=== PATIENT | male | born 1960 | race Caucasian/White ===

== ENCOUNTER 2019-01-26 21:51 | Inpatient (IN) ==
[2019-01-26] MEDS ORDERED: 0.9 % Sodium Chloride 1,000 ML IVC ONE (22:16)
[2019-01-26] MEDS ORDERED: Ondansetron 4 MG/2 ML VIAL IVP ONE (22:20)
[2019-01-26] MEDS ORDERED: Isovue-370 500 ML BOTTLE IVP ONE (22:41)
[2019-01-26 22:52] LABS: Basophils % 0.2 %; Eosinophils # 0.1 K/mcL (0.0-0.6); Eosinophils % 1.3 %; Hematocrit 43.7 % (37.5-50.1); Hemoglobin 14.4 g/dL (12.9-16.9); Immature Granulocytes % 0.4 % (0-4); Lymphocytes # 1.2 K/mcL (0.6-4.6); Mean Corpuscular Hemoglobin 26.5 pg (28.0-33.3); Mean Corpuscular Volume 80.3 fL (83.0-100.0); Monocytes # 0.9 K/mcL (0.0-1.3); Monocytes % 9.3 %; Neutrophils # 6.9 K/mcL (1.6-8.9); Platelet Count 276 K/mcL (140-400); Red Blood Count 5.44 M/mcL (4.19-5.50); Red Cell Distribution Width 15.8 % (11.5-14.5); Segmented Neutrophils % 75.8 %
--- NOTE | 2019-01-26 23:01 | Emergency Department Note ---
Disposition Clinical Impression: SBO (small bowel obstruction), Abdominal pain Disposition: Admitted As Inpatient Referrals: Dodie Lazaro CNP [Primary Care Provider] - Forms: ED Satisfaction Letter, Work/School Release Time of Disposition: 23:48 Abdominal Pain HPI - General Chief Complaint: ED Abdominal Pain Stated Complaint: Bowel Blockage Time Seen by Provider: 01/26/19 22:07 Source: family Mode of arrival: ambulatory Limitations: no limitations Nursing Notes Reviewed: Yes Vital Signs Reviewed: Yes - History of Present Illness HPI Narrative: 58 showed male presents emergency room for abdominal pain. Was just recently discharged 2 days ago after he was admitted for a small bowel obstruction. Patient had a CT scan done which showed the bowel obstruction with a transition point in the right lower quadrant. Patient had NG tube was admitted to the hospital. He did improve. They advanced his diet after NG tube removal when he went home on Tuesday. States ever since then he has been having return of his abdominal pain as well as associated nausea. He admits to a lot of belching and pressure in the upper abdomen. He denies any actual vomiting. He also admits he has passed a little bit of gas at times. No fevers. Pain is somewhat diffuse throughout the abdomen. No other complaints. Pain Scale: 8 - Related Data Home Medications Medication Instructions Recorded Confirmed Cetirizine HCl [24Hour Allergy] 10 mg PO DAILY 01/22/19 01/22/19 Mesalamine [Pentasa] 1,000 mg PO QID 01/22/19 01/22/19 hydroCHLOROthiazide 25 mg PO DAILY 01/22/19 01/22/19 [Hydrochlorothiazide] Allergies Allergy/AdvReac Type Severity Reaction Status Date / Time No Known Allergies Allergy Verified 08/19/17 10:37 Review of Systems: Gen.: No fevers or chills or new weakness Eyes: Denies double vision or any vision changes Ears: Denies any otalgia Pharynx: Denies sore throat CV: Denies chest pain. Denies palpitations Respiratory: Denies any cough or sputum production. No shortness of breath. GI: Positive for abdominal pain, nausea Neuro: Denies any headache. No problems with ambulation. No numbness. Skin: Denies any rashes or abrasions Psych: Denies any depression or suicidal or homicidal ideation Musculoskeletal: Denies any arthralgias or myalgias Abdominal Pain PMH - Past Medical History Medical history: Reports: other Male Surgical History: Reports: other Psychiatric history: Reports: no psych history - Social History Smoking status: Former smoker Alcohol use: Reports: occasionally Drug use: Reports: none Physical Exam - General Limitations: no limitations General appearance: alert - Head Head exam: atraumatic, normocephalic - Eye Eye exam: Present: normal appearance - Chest Chest inspection: Present: normal inspection, symmetric chest wall rise - Respiratory Respiratory exam: Present: normal lung sounds bilaterally. Absent: respiratory distress - Cardiovascular Cardiovascular exam: Present: regular rate, normal rhythm - Abdominal Exam Abdominal exam: Present: soft, tenderness, other (Patient has some high-pitched bowel sounds.). Absent: organomegaly - Expanded Lower Extremity Exam Hip/Pelvis exam: Present: normal inspection - Neurological Exam Neurological exam: Present: alert, oriented X3 - Psychiatric Psychiatric exam: Present: normal affect - Skin Skin exam: Present: warm, dry, intact Course - Reevaluation(s) Reevaluation #1: I did speak with Dr. Ragsdale with general surgery. He would like me to repeat the CT scan. Vital Signs Temperature 98.0 F 01/26/19 22:00 Pulse Rate 81 01/26/19 22:00 Respiratory Rate 18 01/26/19 22:00 Blood Pressure 132/79 01/26/19 22:00 O2 Sat by Pulse Oximetry 94 01/26/19 22:00 Temperature 98.0 F 01/26/19 22:20 Pulse Rate 67 01/26/19 23:31 Respiratory Rate 18 01/26/19 23:31 Blood Pressure 153/92 01/26/19 23:31 O2 Sat by Pulse Oximetry 99 01/26/19 23:31 Oxygen Delivery Oxygen Delivery Room Air Abdominal Pain - MDM Narrative Medical decision making narrative: Abdominal series was done acutely. Patient has diffuse air-fluid levels. - Medical Records Medical records reviewed: Yes I reviewed the patient's medical records. - Lab Data Lab results reviewed: Yes I reviewed the patient's lab results. Result diagrams: 01/26/19 22:16 01/26/19 22:16 Lab Results 01/26/19 01/26/19 Range/Units 22:16 22:16 WBC 9.2 (4.3-11.1) K/mcL RBC 5.44 (4.19-5.50) M/mcL Hgb 14.4 (12.9-16.9) g/dL Hct 43.7 (37.5-50.1) % MCV 80.3 L (83.0-100.0) fL MCH 26.5 L (28.0-33.3) pg MCHC 33.0 (31.6-35.5) g/dL RDW 15.8 H (11.5-14.5) % Plt Count 276 (140-400) K/mcL MPV 9.0 L (9.4-12.4) fL Immature Gran % 0.4 (0-4) % Seg Neutrophils % 75.8 % Lymphocytes % 13.0 % Monocytes % 9.3 % Eosinophils % 1.3 % Basophils % 0.2 % Neutrophils # 6.9 (1.6-8.9) K/mcL Lymphocytes # 1.2 (0.6-4.6) K/mcL Monocytes # 0.9 (0.0-1.3) K/mcL Eosinophils # 0.1 (0.0-0.6) K/mcL Basophils # 0.0 (0.0-0.2) K/mcL Sodium 139 (136-145) mEq/L Potassium 3.6 (3.5-5.1) mEq/L Chloride 105 (98-107) mEq/L Carbon Dioxide 26 (23-29) mEq/L BUN 16 (6-20) mg/dL Creatinine 0.99 (0.70-1.30) mg/dL Est GFR ( Amer) > 60 (> 60) Est GFR (Non-Af Amer) > 60 (> 60) BUN/Creatinine Ratio 16 (6-26) Glucose 123 H (70-105) mg/dL Calculated Osmolality 291 (280-300) Calcium 9.4 (8.6-10.3) mg/dL - Radiology Data Radiology results reviewed: Yes I reviewed the patient's radiology results.
[2019-01-26 23:10] LABS: BUN/Creatinine Ratio 16 (6-26); Blood Urea Nitrogen 16 mg/dL (6-20); Calcium 9.4 mg/dL (8.6-10.3); Carbon Dioxide 26 mEq/L (23-29); Chloride 105 mEq/L (98-107); Glucose 123 mg/dL (70-105); Osmolality,Calculated 291 (280-300); Potassium 3.6 mEq/L (3.5-5.1); Sodium 139 mEq/L (136-145); eGFR For Non-African Americans > 60 (> 60)
[2019-01-26] MEDS ORDERED: *HR* Morphine 2 MG/ML SYRINGE IVP ONE (23:37)
[2019-01-26] MEDS ORDERED: 0.9 % Sodium Chloride 1,000 ML IVC SCH (23:45)
[2019-01-26] MEDS ORDERED: Famotidine 20 MG/2 ML VIAL IVP ONE (23:46)
[2019-01-26] MEDS ORDERED: Ondansetron 4 MG/2 ML VIAL IVP PRN (23:47)
[2019-01-26] MEDS ORDERED: MORPHINE SUL Oral CONC 10 MG/0.5 ML ORAL.SYG SL PRN (23:47)
[2019-01-26 23:58] LABS: Alanine Aminotransferase 17 Units/L (7-52); Albumin 4.1 g/dL (3.5-5.7); Albumin/Globulin Ratio 1.3 (1.1-2.2); Alkaline Phosphatase 66 Units/L (34-104); Aspartate Amino Transferase 18 Units/L (13-39); Bilirubin,Direct 0.3 mg/dL (0.0-0.2); Bilirubin,Indirect 1.4 mg/dL (0.0-1.2); Bilirubin,Total 1.7 mg/dL (0.3-1.0); Globulin 3.2 g/dL (2.4-3.5); Lipase 15 Units/L (11-82); Total Protein 7.3 g/dL (6.4-8.9)
[2019-01-27] MEDS ORDERED: *HR* Dextrose 50 % in Water (Syg) 50 ML SYRINGE IVP PRN (01:24)
[2019-01-27] MEDS ORDERED: Dextrose Gel 15 GM/37.5 ML TUBE PO PRN ×2 (01:24)
[2019-01-27] MEDS ORDERED: D5% in Water 1,000 ML IVC PRN (01:24)
[2019-01-27] MEDS: 0.9 % Sodium Chloride 1,000 ML IVC SCH ×3 (01:29→17:42)
[2019-01-27] MEDS: Pantoprazole 40 MG VIAL IVP SCH (05:22)
[2019-01-27] MEDS ORDERED: Chloraseptic Spray 177 ML BOTTLE MM PRN (08:01)
[2019-01-27] MEDS: Acetaminophen IV 1,000 MG/100 ML INFUS..BTL IVPB SCH ×3 (09:08→17:44)
--- NOTE | 2019-01-27 12:17 | Acute Care Surgery H&P ---
<Venessa Kerr N - Last Filed: 01/27/19 12:15> Date of Encounter: 01/27/19 Time of Encounter: 10:00 Assessment and Plan (1) Small bowel obstruction Current Visit: Yes Status: Acute -58-year-old male with history of LAP-BAND surgery in 2006 returns for his second encounter of right lower quadrant small bowel obstruction -Patient was recently discharged after treatment for small bowel obstruction with NG tube decompression -Patient reports initial improvement after decompression but on day of discharge he had progressively worsening nausea, abdominal pain, and decreased appetite -CT imaging on admission is significant for distal small bowel obstruction -Suspect that the small bowel structure may be secondary to his history of LAP- BAND procedure -Will plan for diagnostic laparoscopy with lysis of adhesions tomorrow -Continue NPO and IV fluids -Continue current pain management History of Present Illness Chief complaint: abdominal pain HPI: Mr. Conti is a 58 year old male with a past surgical history of a lap band surgery in 2006 who was recently admitted with a small bowel obstruction and treated with NG tube decompression. Patient states that since day of discharge he had progressively worsening nausea, decreased appetite, and significant abdominal pain and tenderness. Patient returned the emergency department where a repeat CT scan was performed with findings concerning for a redemonstration of a distal small bowel obstruction. An NG tube was placed and is draining bilious material. This morning the patient is resting comfortably in bed, he still has some abdominal pain with tenderness to palpation of the abdomen. Past Med Surg Social Fam HX - Past Medical History Medical history: other Additional medical history: Ulcerative Colitis, lap band, corneal transplant, SBO Psychiatric history: no psych history - Past Surgical History Additional surgical history: lap band surgery, colonoscopies x3 - Social History Smoking Status: Former smoker Smokeless Tobacco Status: No Alcohol use: occasionally Drug use: none - Family History Mother Living Status: Age at : 73 Cause of : CHF Hx Family Cardiac Disorders: Yes Father Living Status: Still Living Hx Family Cardiac Disorders: Yes (HTN) Hx Family Endocrine Disorder: Yes (DM) Medications and Allergies Cetirizine HCl [24Hour Allergy] 10 mg PO DAILY PRN 01/22/19 [History] Mesalamine [Pentasa] 1,000 mg PO QID 01/22/19 [History] hydroCHLOROthiazide [Hydrochlorothiazide] 25 mg PO DAILY 01/22/19 [History] Fluticasone Propionate Nasal [Flonase] 2 spray NS DAILY PRN 01/27/19 [History] Sodium Chloride for inhalation [Sodium Chloride, Saline 15 Ml 15 Ml] 2 - 3 ml IH DAILY PRN 01/27/19 [History] Allergy/AdvReac Type Severity Reaction Status Date / Time No Known Allergies Allergy Verified 01/27/19 12:37 Review of Systems All systems PM: The remainder of the systems were reviewed and are negative - Constitutional no chills, no fever(s) - Cardiovascular no chest pain - Respiratory no dyspnea - Gastrointestinal abdominal pain, nausea, no diarrhea, no vomiting - Genitourinary no dysuria General Surgery Exam Initial Vital Signs Temp Pulse Resp BP Pulse Ox 98.0 F 81 18 132/79 94 01/26/19 22:00 01/26/19 22:00 01/26/19 22:00 01/26/19 22:00 01/26/19 22:00 - General physical appearance well developed, well nourished - Eyes PERRL, normal ocular movement - ENT normal pinna, normal nares - Neck trachea midline, no venous distension - Respiratory normal expansion, normal respiratory effort - Cardiovascular Cardiovascular exam: Present: RRR - Abdomen Abdomen general surgery: Present: bowel sounds present, soft, tender (Worse in the lower quadrants) - Integumentary Integumentary general surgery: Present: warm and dry - Musculoskeletal Present: normal posture - Psychiatric Psychiatric general surgery: Present: A&Ox3 Results - Labs 01/26/19 22:16 01/26/19 22:16 Abnormal lab results MCV 80.3 fL (83.0-100.0) L 01/26/19 22:16 MCH 26.5 pg (28.0-33.3) L 01/26/19 22:16 RDW 15.8 % (11.5-14.5) H 01/26/19 22:16 MPV 9.0 fL (9.4-12.4) L 01/26/19 22:16 Glucose 123 mg/dL (70-105) H 01/26/19 22:16 1.7 mg/dL (0.3-1.0) H 01/26/19 22:16 0.3 mg/dL (0.0-0.2) H 01/26/19 22:16 1.4 mg/dL (0.0-1.2) H 01/26/19 22:16 Diabetes panel 01/26/19 Range/Units 22:16 Sodium 139 (136-145) mEq/L Potassium 3.6 (3.5-5.1) mEq/L Chloride 105 (98-107) mEq/L Carbon Dioxide 26 (23-29) mEq/L BUN 16 (6-20) mg/dL Creatinine 0.99 (0.70-1.30) mg/dL Glucose 123 H (70-105) mg/dL Calcium 9.4 (8.6-10.3) mg/dL AST 18 (13-39) Units/L ALT 17 (7-52) Units/L Alkaline Phosphatase 66 (34-104) Units/L Albumin 4.1 (3.5-5.7) g/dL Calcium panel 01/26/19 Range/Units 22:16 Calcium 9.4 (8.6-10.3) mg/dL Albumin 4.1 (3.5-5.7) g/dL Pituitary panel 01/26/19 Range/Units 22:16 Sodium 139 (136-145) mEq/L Potassium 3.6 (3.5-5.1) mEq/L Chloride 105 (98-107) mEq/L Carbon Dioxide 26 (23-29) mEq/L BUN 16 (6-20) mg/dL Creatinine 0.99 (0.70-1.30) mg/dL Glucose 123 H (70-105) mg/dL Calcium 9.4 (8.6-10.3) mg/dL Adrenal panel 01/26/19 Range/Units 22:16 Sodium 139 (136-145) mEq/L Potassium 3.6 (3.5-5.1) mEq/L Chloride 105 (98-107) mEq/L Carbon Dioxide 26 (23-29) mEq/L BUN 16 (6-20) mg/dL Creatinine 0.99 (0.70-1.30) mg/dL Glucose 123 H (70-105) mg/dL Calcium 9.4 (8.6-10.3) mg/dL Total Bilirubin 1.7 H (0.3-1.0) mg/dL AST 18 (13-39) Units/L ALT 17 (7-52) Units/L Alkaline Phosphatase 66 (34-104) Units/L Albumin 4.1 (3.5-5.7) g/dL All other labs normal. <Viral Ragsdale M - Last Filed: 01/27/19 15:18> Date of Encounter: 01/27/19 History of Present Illness HPI: Mr. Conti is a 58 year old male Review of Systems All systems PM: The remainder of the systems were reviewed and are negative General Surgery Exam Initial Vital Signs Temp Pulse Resp BP Pulse Ox 98.0 F 81 18 132/79 94 01/26/19 22:00 01/26/19 22:00 01/26/19 22:00 01/26/19 22:00 01/26/19 22:00 Results - Labs 01/26/19 22:16 01/26/19 22:16 Abnormal lab results MCV 80.3 fL (83.0-100.0) L 01/26/19 22:16 MCH 26.5 pg (28.0-33.3) L 01/26/19 22:16 RDW 15.8 % (11.5-14.5) H 01/26/19 22:16 MPV 9.0 fL (9.4-12.4) L 01/26/19 22:16 Glucose 123 mg/dL (70-105) H 01/26/19 22:16 1.7 mg/dL (0.3-1.0) H 01/26/19 22:16 0.3 mg/dL (0.0-0.2) H 01/26/19 22:16 1.4 mg/dL (0.0-1.2) H 01/26/19 22:16 Diabetes panel 01/26/19 Range/Units 22:16 Sodium 139 (136-145) mEq/L Potassium 3.6 (3.5-5.1) mEq/L Chloride 105 (98-107) mEq/L Carbon Dioxide 26 (23-29) mEq/L BUN 16 (6-20) mg/dL Creatinine 0.99 (0.70-1.30) mg/dL Glucose 123 H (70-105) mg/dL Calcium 9.4 (8.6-10.3) mg/dL AST 18 (13-39) Units/L ALT 17 (7-52) Units/L Alkaline Phosphatase 66 (34-104) Units/L Albumin 4.1 (3.5-5.7) g/dL Calcium panel 01/26/19 Range/Units 22:16 Calcium 9.4 (8.6-10.3) mg/dL Albumin 4.1 (3.5-5.7) g/dL Pituitary panel 01/26/19 Range/Units 22:16 Sodium 139 (136-145) mEq/L Potassium 3.6 (3.5-5.1) mEq/L Chloride 105 (98-107) mEq/L Carbon Dioxide 26 (23-29) mEq/L BUN 16 (6-20) mg/dL Creatinine 0.99 (0.70-1.30) mg/dL Glucose 123 H (70-105) mg/dL Calcium 9.4 (8.6-10.3) mg/dL Adrenal panel 01/26/19 Range/Units 22:16 Sodium 139 (136-145) mEq/L Potassium 3.6 (3.5-5.1) mEq/L Chloride 105 (98-107) mEq/L Carbon Dioxide 26 (23-29) mEq/L BUN 16 (6-20) mg/dL Creatinine 0.99 (0.70-1.30) mg/dL Glucose 123 H (70-105) mg/dL Calcium 9.4 (8.6-10.3) mg/dL Total Bilirubin 1.7 H (0.3-1.0) mg/dL AST 18 (13-39) Units/L ALT 17 (7-52) Units/L Alkaline Phosphatase 66 (34-104) Units/L Albumin 4.1 (3.5-5.7) g/dL All other labs normal. - Attending Attestation I examined this patient and my medical decision-making was reviewed with the Resident Physician. I agree with the documented findings, disposition and treatment plan as described except to the extent set forth below. I reviewed the above assessment and evaluation with the resident and agree with the above plan. Patient had a previous admission last week secondary to similar symptoms of nausea vomiting abdominal pain. CT scan showed evidence of a partial small bowel obstruction. He was treated conservatively with an NG tube which did not resolve his symptoms. He states that he has been home for a co uple days and been having a fairly liquid diet and started to have increasing abdominal pain. Because of his increasing pain re-presented to the [facility]. Repeat CT scan once again shows evidence of bowel obstruction with decompression noted in the right lower quadrant. Also on imaging it appears to be near the area of his tubing for his laparoscopic band procedure. NG tube has helped his symptoms and he is less tenderness to palpation at this time. I explained to the patient that I am concerned that he has adhesions around the tubing that is causing the problems with his partial obstruction and I think it would be appropriate to proceed with a robot laparoscopic valuation and lysis of adhesion. Risk and benefits discussed with the patient he agrees to the above plan. We will plan for this tomorrow.
--- NOTE | 2019-01-27 16:26 | Event Note ---
Date of Encounter: 01/27/19 Time of Encounter: 16:25 Contacted by nurse who states the patient family member and patient wished to have a surgical considerations and procedure performed by Dr. Mcclelland (patient's family members are familiar with Dr. Mcclelland). Dr. Mcclelland has been contacted and has seen the patient and agrees with transfer acceptance.
--- NOTE | 2019-01-27 16:40 | General Surgery Consult Note ---
Date of Encounter: 01/27/19 Time of Encounter: 16:00 History of Present Illness Consult date: 01/27/19 Requesting physician: Viral Ragsdale History of present illness: 58-year-old readmitted to [facility] last evening with recurrent abdominal distention, pain, nausea and vomiting consistent with persistent/recurrent small bowel obstruction. The patient was initially admitted 01/22/19 with diffuse cramping abdominal pain nausea and vomiting. Radiographs were consistent with small bowel obstruction. The patient was ad mitted and medically managed with apparent resolution of his symptoms. The patient was discharged home only to have recurrent symptoms requiring his readmission last evening. Based on repeat imaging lab work and physical examination surgery has been recommended. The patient and his family have re quested that I contacted for this potential surgical intervention. I agree with the treatments rendered to date. Medical management has obviously failed to resolve the patient's acute symptoms and surgery is warranted. Past medical history: Hypertension; ulcerative colitis Surgeries: Lap band surgery in 2006; colonoscopy 3 Allergies: No known drug allergies Medications: Cetirizine 10 mg by mouth daily Mesalamine 1000 mg by mouth 4 times a day Hydrochlorothiazide 25 mg by mouth daily Social history: Patient is , lives with spouse; he is a former smoker. He quit smoking in 2004 but admits to 2 packs daily for approximately 20 years. The patient admits to an occasional alcoholic beverage she does not consume illicit drugs. Family history: Notable for CHF and diabetes mellitus On physical examination: Age-appropriate male resting comfortably in his hospital bed. An NG is in place, gastric output recorded for today was 375 mL. The patient is afebrile, 98.3, pulse 66 and regular, respirations 16 and nonlabored, blood pressure 156/92. In his warm without obvious jaundice Lungs: Bibasilar rales; no obvious pain on deep inspiration Cardiac: Regular rate, no appreciable murmurs Abdomen: Soft, rare bowel sounds. No obvious intra-abdominal masses. No peritoneal signs or rebound. Most recent labs: 01/26/19 - WBC 9.2, hemoglobin 14.4, hematocrit 43.7. Platelet count 276,000; differential within normal limits Electrolytes, BUN, creatinine within normal limits Bilirubin 1.7, remaining LFTs within normal limits. The hyperbilirubinemia likely due to reabsorption CT abdomen and pelvis - reviewed with [facility] with comparison to prior studies. Impression: 58-year-old male with small bowel obstruction which appears to be related to the prior lap band procedure. The catheter extending from the injection port to the band appears to have "wrapped around" a portion of the small bowel causing the bowel obstruction. The CT suggests possible erosion into the small bowel but without peritoneal signs this seems less likely. Exploratory celiotomy with lysis of adhesions is recommended at this time as medical management has been trialed unsuccessfully. Risks of surgery include hemorrhage, infection, intra- abdominal abscess, injury to adjacent structures. Possible small bowel resection may be necessary and this may result in damage to the lap band (the attached catheter). The surgery and its risks has been discussed extensively with the patient and his family in attendance. Surgical consent has been obtained. Surgery is scheduled in the a.m. Past Med Surg Social Fam HX - Past Medical History Medical history: other Additional medical history: Ulcerative Colitis, lap band, corneal transplant, SBO Psychiatric history: no psych history - Past Surgical History Additional surgical history: lap band surgery, colonoscopies x3 - Social History Smoking Status: Former smoker Smokeless Tobacco Status: No Alcohol use: occasionally Drug use: none - Family History Mother Living Status: Age at : 73 Cause of : CHF Hx Family Cardiac Disorders: Yes Father Living Status: Still Living Hx Family Cardiac Disorders: Yes (HTN) Hx Family Endocrine Disorder: Yes (DM) Medications and Allergies Cetirizine HCl [24Hour Allergy] 10 mg PO DAILY PRN 01/22/19 [History] Mesalamine [Pentasa] 1,000 mg PO QID 01/22/19 [History] hydroCHLOROthiazide [Hydrochlorothiazide] 25 mg PO DAILY 01/22/19 [History] Fluticasone Propionate Nasal [Flonase] 2 spray NS DAILY PRN 01/27/19 [History] Sodium Chloride for inhalation [Sodium Chloride, Saline 15 Ml 15 Ml] 2 - 3 ml IH DAILY PRN 01/27/19 [History] Allergy/AdvReac Type Severity Reaction Status Date / Time No Known Allergies Allergy Verified 01/27/19 12:37 Review of Systems All systems PM: The remainder of the systems were reviewed and are negative General Surgery Exam Initial Vital Signs Temp Pulse Resp BP Pulse Ox 98.0 F 81 18 132/79 94 01/26/19 22:00 01/26/19 22:00 01/26/19 22:00 01/26/19 22:00 01/26/19 22:00 Exam Initial Vital Signs Temp Pulse Resp BP Pulse Ox 98.0 F 81 18 132/79 94 01/26/19 22:00 01/26/19 22:00 01/26/19 22:00 01/26/19 22:00 01/26/19 22:00 Results - Labs 01/26/19 22:16 01/26/19 22:16 Abnormal lab results MCV 80.3 fL (83.0-100.0) L 01/26/19 22:16 MCH 26.5 pg (28.0-33.3) L 01/26/19 22:16 RDW 15.8 % (11.5-14.5) H 01/26/19 22:16 MPV 9.0 fL (9.4-12.4) L 01/26/19 22:16 Glucose 123 mg/dL (70-105) H 01/26/19 22:16 1.7 mg/dL (0.3-1.0) H 01/26/19 22:16 0.3 mg/dL (0.0-0.2) H 01/26/19 22:16 1.4 mg/dL (0.0-1.2) H 01/26/19 22:16 Diabetes panel 01/26/19 Range/Units 22:16 Sodium 139 (136-145) mEq/L Potassium 3.6 (3.5-5.1) mEq/L Chloride 105 (98-107) mEq/L Carbon Dioxide 26 (23-29) mEq/L BUN 16 (6-20) mg/dL Creatinine 0.99 (0.70-1.30) mg/dL Glucose 123 H (70-105) mg/dL Calcium 9.4 (8.6-10.3) mg/dL AST 18 (13-39) Units/L ALT 17 (7-52) Units/L Alkaline Phosphatase 66 (34-104) Units/L Albumin 4.1 (3.5-5.7) g/dL Calcium panel 01/26/19 Range/Units 22:16 Calcium 9.4 (8.6-10.3) mg/dL Albumin 4.1 (3.5-5.7) g/dL Pituitary panel 01/26/19 Range/Units 22:16 Sodium 139 (136-145) mEq/L Potassium 3.6 (3.5-5.1) mEq/L Chloride 105 (98-107) mEq/L Carbon Dioxide 26 (23-29) mEq/L BUN 16 (6-20) mg/dL Creatinine 0.99 (0.70-1.30) mg/dL Glucose 123 H (70-105) mg/dL Calcium 9.4 (8.6-10.3) mg/dL Adrenal panel 01/26/19 Range/Units 22:16 Sodium 139 (136-145) mEq/L Potassium 3.6 (3.5-5.1) mEq/L Chloride 105 (98-107) mEq/L Carbon Dioxide 26 (23-29) mEq/L BUN 16 (6-20) mg/dL Creatinine 0.99 (0.70-1.30) mg/dL Glucose 123 H (70-105) mg/dL Calcium 9.4 (8.6-10.3) mg/dL Total Bilirubin 1.7 H (0.3-1.0) mg/dL AST 18 (13-39) Units/L ALT 17 (7-52) Units/L Alkaline Phosphatase 66 (34-104) Units/L Albumin 4.1 (3.5-5.7) g/dL All other labs normal. Consult Discharge Plan - Plan Referrals: Dodie Lazaro, DIGITAL DIRECTOR [Primary Care Provider] -
[2019-01-28] MEDS: Acetaminophen IV 1,000 MG/100 ML INFUS..BTL IVPB SCH ×2 (00:41→04:53)
[2019-01-28] MEDS: 0.9 % Sodium Chloride 1,000 ML IVC SCH (04:52)
[2019-01-28] MEDS: Pantoprazole 40 MG VIAL IVP SCH (04:59)
[2019-01-28] MEDS ORDERED: *HR* Rocuronium Bromide 50 MG/5 ML VIAL ONE (09:53)
[2019-01-28] MEDS ORDERED: Dexamethasone 4 MG/ML VIAL ONE ×2 (09:53→13:18)
[2019-01-28] MEDS ORDERED: Lidocaine -MPF 4% 5 ML AMPUL ONE (09:53)
[2019-01-28] MEDS ORDERED: Lidocaine -MPF 2% 2 ML VIAL ONE (09:53)
[2019-01-28] MEDS ORDERED: Ondansetron 4 MG/2 ML VIAL ONE (09:53)
[2019-01-28] MEDS ORDERED: *HR* FentaNYL (PF) 100 MCG/2 ML VIAL ONE ×2 (09:53→13:07)
[2019-01-28] MEDS ORDERED: *HR* Propofol 200 MG/20 ML VIAL IVP ONE ×2 (09:53→12:59)
[2019-01-28] MEDS ORDERED: *HR* Succinylcholine 200 MG/10 ML VIAL IVP ONE (09:53)
--- NOTE | 2019-01-28 11:08 | Anesthesia Evaluation PreOp ---
Date of Encounter: 01/28/19 Time of Encounter: 11:06 - Past History Planned Operation: Exploratory celiotomy Cardiac History: HTN, Other (can walk up a flight of stairs) Pulmonary History: Former smoker (quit in 2004), Snore, Gasp/choke asleep, GEOVANNI Dx (does not use CPAP) MANAGER COMBINATION History: Denies Any Significant HX Other Medical History: Other (ulcerative colitis, hx gastric band) Anesthesia History: No Prior Anesthetic Complications Alcohol Use: occasionally Drug use: none Medications and Allergies Cetirizine HCl [24Hour Allergy] 10 mg PO DAILY PRN 01/22/19 [History] Mesalamine [Pentasa] 1,000 mg PO QID 01/22/19 [History] hydroCHLOROthiazide [Hydrochlorothiazide] 25 mg PO DAILY 01/22/19 [History] Fluticasone Propionate Nasal [Flonase] 2 spray NS DAILY PRN 01/27/19 [History] Sodium Chloride for inhalation [Sodium Chloride, Saline 15 Ml 15 Ml] 2 - 3 ml IH DAILY PRN 01/27/19 [History] Allergy/AdvReac Type Severity Reaction Status Date / Time No Known Allergies Allergy Verified 01/27/19 12:37 - Meds/Allergy Pre-op Review Medications Reviewed: Yes Allergies Reviewed: Yes Beta Blockers on Current Med List: No Anesthesia Results - Labs 01/26/19 22:16 01/26/19 22:16 - Imaging Additional studies: TTE: Impressions: LVEF 55%. Normal LV chamber size and function. Mild concentric left ventricular hypertrophy. Atypical septal motion consistent with a bundle branch block. Mild left ventricular diastolic dysfunction. Normal right ventricular structure and function. No evidence of pulmonary hypertension. No significant valvular dysfunction. Anesthesia Exam Last Vital Signs Temp 98.4 F 01/28/19 04:18 Pulse 76 01/28/19 04:18 Resp 18 01/28/19 04:18 BP 156/82 01/28/19 04:18 Pulse Ox 93 01/28/19 04:18 Weight: 121 kg NPO (# of Hours): > 8 hrs - HEENT Pupil (Motor): Pupils equal, EOMI Mallampati: III Teeth: Normal, Prosthesis (has NG in place) Oral Opening: Greater than 3 - MANAGER COMBINATION LOC: Oriented - Cardiac Rhythm: Regular Murmur: None - Pulmonary Breath Sounds: bilateral Clear Respiratory Effort: Symmetrical Anesthesia Assess/Plan ASA Score: 3 Level of consciousness: Cooperative Anesthetic Plan: General, Precautions (suction out stomach, RSI prior to induction (bowel obstruction); C-mac in room (difficult to mask patient with NG/short TM distance/MIII)) Monitoring Plan: Standard Monitors Recovery Plan: PACU
[2019-01-28] MEDS ORDERED: *HR* FentaNYL (PF) 100 MCG/2 ML VIAL IVP PRN (11:10)
[2019-01-28] MEDS ORDERED: *HR* HYDROmorphone (PF) 1 MG/ML SYRINGE IVP PRN (11:10)
[2019-01-28] MEDS ORDERED: Albuterol 2.5 MG/3 ML NEBULIZER IH ONE (11:10)
[2019-01-28] MEDS ORDERED: *HR* Promethazine 25 MG/ML VIAL IVP PRN (11:10)
[2019-01-28] MEDS ORDERED: *HR* Midazolam HCl 2 MG/2 ML VIAL ONE (11:56)
[2019-01-28] MEDS ORDERED: Bupivacaine/EPI 1:200k 0.25%PF 30 ML VIAL ONE (12:01)
[2019-01-28] MEDS ORDERED: EPHEDrine 50 MG/ML VIAL ONE (13:26)
[2019-01-28] MEDS ORDERED: *HR* HYDROMORPHONE 2 MG/ML VIAL ONE (13:42)
[2019-01-28] MEDS ORDERED: SUGAMMADEX SODIUM 500 MG/5 ML VIAL IV ONE (13:42)
--- NOTE | 2019-01-28 14:14 | Operative Note ---
Date of procedure: 01/28/19 Pre-op diagnosis: Small bowel obstruction Post-op diagnosis: other (Small bowel obstruction due to an internal hernia created by the lap band catheter) Procedure: Exploratory celiotomy, release of small bowel obstruction with revision lap band catheter; incidental appendectomy Implants: No new implants Complications: None apparent Anesthesia: GETA Local Anesthetics: 0.25% Sensorcaine HCL with Epinephrine 1:200,000 SubQ (cc) (30 mL) Surgeon: Nii Mcclelland Was there an administrative assistant data entry present: No Estimated blood loss (cc): 10 IV fluids (cc): 1,500 Specimen: appendix, 16 cm lap band catheter Condition: stable Disposition: PACU Procedure in Detail: The patient was brought to the operating room where he was placed supine on the procedure table. The patient was identified to appropriate person and procedure. The accuracy of this information was confirmed by the patient and procedure team. The patient was then intubated and anesthetized under the supervision of Dr Tolliver. The abdomen was prepped and draped in usual sterile fashion. The subcutaneous port of the lap band was palpable in the anterior abdominal wall cephalad to the umbilicus left of midline. When the procedure team indicated that readiness, surgery was initiated. Several milliliters of 0.25% bupivacaine with 1-200,000 epinephrine was infiltrated into the midline anterior abdominal wall. An approximately 15 cm midline incision was made from the umbilicus extending cephalad. Incision was extended through the subcutaneous fat to the fascia. Bleeding points were co ntrolled with electrocautery. The fascia was incised along the linea alba. The peritoneum was grasped with 2 curved Shoshana clamps elevated and incised. This allowed atraumatic entry into the abdominal cavity. The lap band catheter was readily identified. This catheter appeared to be lengthy and redundant causing a loop through which small bowel had herniated and become obstructed. The small bowel was extracted from this loop. The small bowel was then examined from the ligament of Treitz to the ileocecal valve. The distal ileum was fixed in the pelvis. These adhesions were incised with the aid of the Ethicon Enseal dissector. The terminal ileum and cecum were mobilized. A normal-appearing appendix was identified and removed. The mesoappendix was divided at the junction of the appendix with the cecum. The appendix was divided at this location using a TX 30 mm stapler. The remainder of the mesoappendix was divided with the aid of the Ethicon Enseal dissector. The appendix was removed. The staple line appeared intact. The mesoappendix demonstrated no hemorrhage. Small bowel was again examined from the ligament of Treitz to the ileocecal valve. There were multiple "stripes" of scarring scattered diffusely on the serosa of the small bowel without any strictures or stenoses. Fluid that had accumulated within the proximal small bowel was visibly flowing distally into the cecum. The remainder of the colon was not well visualized due to patient's body habitus. The catheter of the lap band demonstrated a junction. I was able to separate the catheter at this junction, resect approximately 16 cm of catheter and then reconnected catheter at this junction. This reduced the potential for recurrent small bowel obstruction secondary to a markedly redundant lap band catheter. Small bowel was returned to its usual anatomic location. Abdominal wall was closed in layers. The peritoneum was closed with running interlocking 0 Vicryl. The fascia was infiltrated with 0.25% bupivacaine with 1-200,000 epinephrine and then closed in the midline with interrupted [id number] 0 Vicryl. The subcutaneous tissue was reapproximated with 2 layers running 3-0 Vicryl. The skin edges were approximated with yolie. Dry sterile dressings were applied. The patient was taken to recovery in stable condition. Needle, sponge, and management counts were correct at the close of the case.
[2019-01-28] MEDS ORDERED: Acetaminophen IV 1,000 MG/100 ML INFUS..BTL ONE (14:21)
[2019-01-28] MEDS ORDERED: Ketorolac 30 MG/ML VIAL ONE (14:24)
[2019-01-28] MEDS ORDERED: Dextrose Gel 15 GM/37.5 ML TUBE PO PRN (14:53)
[2019-01-28] MEDS ORDERED: *HR* Dextrose 50 % in Water (Syg) 50 ML SYRINGE IVP PRN (14:53)
[2019-01-28] MEDS ORDERED: Acetaminophen 325 MG TABLET PO PRN (14:53)
[2019-01-28] MEDS ORDERED: Ondansetron 4 MG/2 ML VIAL IVP PRN (14:53)
[2019-01-28] MEDS ORDERED: Ringers Solution, Lactated 1,000 ML IVC SCH (14:53)
--- NOTE | 2019-01-28 15:08 | Anesthesia Evaluation Post Op ---
Date of Encounter: 01/28/19 Time of Encounter: 15:07 - Vital Signs Vital Signs: Last Vital Signs Temp 97.8 F 01/28/19 14:43 Pulse 77 01/28/19 14:43 Resp 16 01/28/19 14:43 BP 154/88 01/28/19 14:43 Pulse Ox 95 01/28/19 14:43 - Lungs Lungs: Clear Ascult./Percussion - Airway Airway: Non-obstructed - Cardiovascular Regular Rate - Mental Status Mental Status: Alert & Oriented, Answers Appropriately - Pain Pain Scale: 4 - Nausea Vomiting Nausea Vomiting: Not Present - Hydration Hydration: NPO - Discharge PostOp Status: Transfer Patient to floor
[2019-01-28] MEDS: *HR* OxyCODONE Immed Rel 5 MG TABLET PO PRN ×2 (15:31→22:58)
[2019-01-28] MEDS: Albuterol 2.5 MG/3 ML NEBULIZER IH SCH ×2 (15:54→21:12)
[2019-01-28] MEDS: D5% in 0.45% NACL 1,000 ML IVC SCH (16:15)
[2019-01-28] MEDS: Mesalamine 250 MG CAPSULE.ER PO SCH ×2 (17:09→19:55)
[2019-01-28] MEDS: *HR* OxyCODONE/APAP 5/325 TABLET PO PRN (19:55)
[2019-01-29] MEDS: *HR* OxyCODONE/APAP 5/325 TABLET PO PRN ×3 (02:08→17:29)
[2019-01-29] MEDS: Albuterol 2.5 MG/3 ML NEBULIZER IH SCH ×4 (03:23→21:44)
[2019-01-29 03:56] LABS: Basophils % 0.1 %; Hematocrit 38.9 % (37.5-50.1); Hemoglobin 12.5 g/dL (12.9-16.9); Immature Granulocytes % 0.3 % (0-4); Lymphocytes # 0.8 K/mcL (0.6-4.6); Lymphocytes % 7.1 %; Mean Corpuscular HGB Conc 32.1 g/dL (31.6-35.5); Mean Corpuscular Hemoglobin 26.8 pg (28.0-33.3); Mean Corpuscular Volume 83.3 fL (83.0-100.0); Mean Platelet Volume 9.4 fL (9.4-12.4); Monocytes # 0.8 K/mcL (0.0-1.3); Monocytes % 7.9 %; Neutrophils # 8.9 K/mcL (1.6-8.9); Platelet Count 218 K/mcL (140-400); Red Blood Count 4.67 M/mcL (4.19-5.50); Segmented Neutrophils % 84.6 %
[2019-01-29] MEDS: D5% in 0.45% NACL 1,000 ML IVC SCH ×2 (04:04→17:29)
[2019-01-29 04:15] LABS: BUN/Creatinine Ratio 17 (6-26); Blood Urea Nitrogen 14 mg/dL (6-20); Carbon Dioxide 25 mEq/L (23-29); Chloride 108 mEq/L (98-107); Glucose 156 mg/dL (70-105); Osmolality,Calculated 296 (280-300); Potassium 3.9 mEq/L (3.5-5.1); Sodium 141 mEq/L (136-145); eGFR For Non-African Americans > 60 (> 60)
[2019-01-29] MEDS: Pantoprazole 40 MG VIAL IVP SCH (05:28)
[2019-01-29] MEDS: *HR* OxyCODONE Immed Rel 5 MG TABLET PO PRN ×3 (05:28→20:52)
[2019-01-29] MEDS: hydroCHLOROthiazide 25 MG TABLET PO SCH (08:38)
[2019-01-29] MEDS: Mesalamine 250 MG CAPSULE.ER PO SCH ×4 (08:38→20:51)
--- NOTE | 2019-01-29 12:05 | General Surgery Progress Note ---
Date of Encounter: 01/29/19 Time of Encounter: 11:59 Subjective Patient reports: feels better, still having pain Narrative: General Surgery - POD #1 Patient remains afebrile, current temperature 97.8, pulse regular, 67-77; respiratory rate 16, blood pressure 118/75 - 129/73. Patient was complaining of incisional pain as expected; but feeling significantly improved. No nausea or vomiting. Lungs: Clear bilaterally; effective inspiratory effort with minimal abdominal pain Cardiac: Regular rate, no appreciable murmurs Abdomen: Soft, quiet was very few bowel sounds. The midline incision is clean, dry and healing well. Operative dressing removed. Urine output 550 mL for calendar day 01/24/19 none recorded so far today. Patient indicates several voids this morning; exact volume not known Labs: WBC 10.5, hemoglobin 12.5 with hematocrit 38.9. Normal differential. Electrolytes, BUN, creatinine within normal limits Accu-Cheks 113 - 118 this a.m. Impression: Small bowel obstruction secondary to an internal hernia created by the lap band catheter. This catheter had looped with a segment of small bowel becoming entrapped within this loop. As the bowel dilated, the effective occlusion increase. Postoperative day #1, status post exploratory celiotomy small bowel instruction with revision (shortening) of the lap band catheter. Incidental appendectomy. Acceptable postoperative status H&H 12.5 with hematocrit 38.9 - reflective of dilution secondary to perioperative IV fluids Recommendations: Continue nothing by mouth except for ice chips and meds with sips of water Encourage activity out of bed; ambulate Objective Vital Signs - Last 8 Hours Temp Pulse Resp BP Pulse Ox 01/29/19 10:44 16 93 01/29/19 08:15 96 01/29/19 07:06 97.8 F 67 16 118/75 96 01/29/19 04:00 98.2 F 77 20 129/73 93 Intake and Output 01/28/19 01/29/19 01/29/19 23:59 07:59 15:59 Intake Total 1000 / 2100 1000 / 1000 Output Total 75 / 1910 0 / 0 Balance 925 / 190 1000 / 1000 Intake: IV Fluids 1000 / 2100 1000 / 1000 0.9 % Sodium Chloride 1,000 ML 1000 / 2000 @ 90 mls/hr IVC .[id number] [facility] Rx# :[id number] D5% And 0.45% Nacl 1000 Ml Bag 1000 / 1000 1,000 ML @ 75 mls/hr IVC . [id number] [facility] Rx#:[id number] Oral 0 / 0 Output: Urine 75 / 550 0 / 0 Other: Meal DINNER NPO NPO Percent of Meal Consumed 0% Blood Glucose* 174 113 - Labs 01/29/19 03:29 01/29/19 03:29 Diabetes panel 01/29/19 Range/Units 03:29 Sodium 141 (136-145) mEq/L Potassium 3.9 (3.5-5.1) mEq/L Chloride 108 H (98-107) mEq/L Carbon Dioxide 25 (23-29) mEq/L BUN 14 (6-20) mg/dL Creatinine 0.82 (0.70-1.30) mg/dL Glucose 156 H (70-105) mg/dL Calcium 8.0 L (8.6-10.3) mg/dL Calcium panel 01/29/19 Range/Units 03:29 Calcium 8.0 L (8.6-10.3) mg/dL Pituitary panel 01/29/19 Range/Units 03:29 Sodium 141 (136-145) mEq/L Potassium 3.9 (3.5-5.1) mEq/L Chloride 108 H (98-107) mEq/L Carbon Dioxide 25 (23-29) mEq/L BUN 14 (6-20) mg/dL Creatinine 0.82 (0.70-1.30) mg/dL Glucose 156 H (70-105) mg/dL Calcium 8.0 L (8.6-10.3) mg/dL Adrenal panel 01/29/19 Range/Units 03:29 Sodium 141 (136-145) mEq/L Potassium 3.9 (3.5-5.1) mEq/L Chloride 108 H (98-107) mEq/L Carbon Dioxide 25 (23-29) mEq/L BUN 14 (6-20) mg/dL Creatinine 0.82 (0.70-1.30) mg/dL Glucose 156 H (70-105) mg/dL Calcium 8.0 L (8.6-10.3) mg/dL Consult Discharge Plan - Plan Referrals: Dodie Lazaro, [employer] [Primary Care Provider] -
[2019-01-30] MEDS: *HR* OxyCODONE/APAP 5/325 TABLET PO PRN ×3 (01:17→12:53)
[2019-01-30] MEDS: Albuterol 2.5 MG/3 ML NEBULIZER IH SCH ×4 (04:12→21:36)
[2019-01-30] MEDS: Pantoprazole 40 MG VIAL IVP SCH (06:23)
[2019-01-30] MEDS: D5% in 0.45% NACL 1,000 ML IVC SCH ×2 (06:27→20:59)
[2019-01-30] MEDS: hydroCHLOROthiazide 25 MG TABLET PO SCH (09:19)
[2019-01-30] MEDS: Mesalamine 250 MG CAPSULE.ER PO SCH ×4 (09:19→20:59)
[2019-01-30] MEDS: *HR* OxyCODONE Immed Rel 5 MG TABLET PO PRN ×2 (09:25→15:39)
--- NOTE | 2019-01-30 14:38 | General Surgery Progress Note ---
Date of Encounter: 01/30/19 Time of Encounter: 14:34 Subjective Narrative: General Surgery - POD #2 patient feeling better; describes less incisional pain. More active out of bed. Afebrile, currently 98.5, pulse 69-79; respiratory rate 16, blood pressure 110/75 - 129/80 Lungs: Clear to auscultation; no obvious pain on deep inspiration Cardiac: Regular rate, no appreciable murmur Abdomen: Soft, active bowel sounds but no flatus or BM. Midline incision intact and healing well. Tenderness to palpation is diminished. Urine output: 950 mL so far today. Impression: Postoperative day #2, status post exploratory laparotomy with release of small bowel obstruction caused by the lap band catheter Bowel activity appears to be improving. Acceptable postoperative state Recommendations: Allow clear liquid Fleet enema today/ collon stimulation Repeat labs in a.m. Patient encouraged to be active out of bed Objective Vital Signs - Last 8 Hours Temp Pulse Resp BP Pulse Ox 01/30/19 14:23 98.5 F 69 16 152/100 96 01/30/19 10:28 98.5 F 79 16 110/75 95 01/30/19 06:42 98.4 F 74 16 129/80 95 Intake and Output 01/29/19 01/30/19 01/30/19 23:59 07:59 15:59 Intake Total 1000 / 2000 1000 / 1000 0 / 1000 Output Total 550 / 950 400 / 950 Balance 1000 / 1690 450 / 50 -400 / 50 Intake: IV Fluids 1000 / 2000 1000 / 1000 D5% And 0.45% Nacl 1000 Ml Bag 1000 / 2000 1000 / 1000 1,000 ML @ 75 mls/hr IVC . [id number] [facility] Rx#:[id number] Oral 0 / 0 0 / 0 Output: Urine 550 / 950 400 / 950 Other: Meal NPO NPO Percent of Meal Consumed 0% # Bowel Movements 0 Weight 124.7 kg Blood Glucose* 95 93 101 Patient Weight 01/30/19 23:59 Weight 124.7 kg - Labs 01/29/19 03:29 01/29/19 03:29 Consult Discharge Plan - Plan Referrals: Dodie Lazaro, [employer]IENT [employer]ERSON [Primary Care Provider] -
[2019-01-30] MEDS: *HR* Heparin 5,000 UNIT/ML VIAL SQ SCH ×2 (15:38→20:59)
[2019-01-31] MEDS: *HR* OxyCODONE Immed Rel 5 MG TABLET PO PRN ×2 (00:28→06:47)
[2019-01-31] MEDS: Pantoprazole 40 MG VIAL IVP SCH (06:47)
[2019-01-31] MEDS: *HR* Heparin 5,000 UNIT/ML VIAL SQ SCH ×3 (06:47→22:22)
[2019-01-31] MEDS: Albuterol 2.5 MG/3 ML NEBULIZER IH SCH ×2 (07:36→10:58)
[2019-01-31] MEDS: Mesalamine 250 MG CAPSULE.ER PO SCH ×4 (09:25→22:23)
[2019-01-31] MEDS: hydroCHLOROthiazide 25 MG TABLET PO SCH (09:25)
[2019-01-31] MEDS: *HR* OxyCODONE/APAP 5/325 TABLET PO PRN ×2 (09:28→16:37)
--- NOTE | 2019-01-31 11:16 | General Surgery Progress Note ---
Date of Encounter: 01/31/19 Time of Encounter: 11:12 Subjective Narrative: General Surgery - POD #3 Afebrile, hemodynamically stable: 98.0, 71, 16, 146/94. SPO2 on room air 97% Lungs: Clear Abdomen: Soft, slightly distended with active bowel sounds. No noted or recorded BM. No flatus. Midline incision intact clean and dry. Patient tolerating clear liquids without obvious nausea or vomiting. Urine output: Approximately 1800 mL for the last 24 hours. A.m. labs not obtained; will reorder for tomorrow a.m. Impression: Postoperative day #3, status post exploratory celiotomy with release of small bowel obstruction and incidental appendectomy. Acceptable postoperative status Slow return of bowel activity Plan: Advance diet to full liquid Decrease IV fluids Check CBC, electrolytes, BUN, creatinine, phosphorus, magnesium, and total bilirubin in a.m. Objective Vital Signs - Last 8 Hours Temp Pulse Resp BP Pulse Ox 01/31/19 10:01 98.0 F 71 16 146/94 97 01/31/19 06:40 98.0 F 71 16 123/84 95 Intake and Output 01/30/19 01/31/19 01/31/19 23:59 07:59 15:59 Intake Total 1000 / 2000 360 / 360 Output Total 575 / 1800 0 / 375 375 / 375 Balance 425 / 200 0 / -15 -15 / -15 Intake: IV Fluids 1000 / 2000 D5% And 0.45% Nacl 1000 Ml Bag 1000 / 2000 1,000 ML @ 75 mls/hr IVC . [id number] [facility] Rx#:[id number] Oral 0 / 0 360 / 360 Output: Urine 575 / 1800 0 / 375 375 / 375 Other: Meal Breakfast # Bowel Movements 0 0 - Labs 01/29/19 03:29 01/29/19 03:29 Consult Discharge Plan - Plan Referrals: Nii Mcclelland MD [Non-Partnered Physician] - Dodie Lazaro CNP [Primary Care Provider] -
[2019-01-31] MEDS: D5% in 0.45% NACL 1,000 ML IVC SCH (12:04)
[2019-02-01 01:40] LABS: Basophils % 0.4 %; Eosinophils # 0.5 K/mcL (0.0-0.6); Hematocrit 39.9 % (37.5-50.1); Hemoglobin 12.8 g/dL (12.9-16.9); Immature Granulocytes % 0.7 % (0-4); Lymphocytes # 1.2 K/mcL (0.6-4.6); Lymphocytes % 17.2 %; Mean Corpuscular HGB Conc 32.1 g/dL (31.6-35.5); Mean Corpuscular Hemoglobin 26.4 pg (28.0-33.3); Mean Corpuscular Volume 82.4 fL (83.0-100.0); Monocytes # 0.6 K/mcL (0.0-1.3); Monocytes % 8.9 %; Neutrophils # 4.6 K/mcL (1.6-8.9); Platelet Count 289 K/mcL (140-400); Red Blood Count 4.84 M/mcL (4.19-5.50); Red Cell Distribution Width 15.7 % (11.5-14.5); Segmented Neutrophils % 65.8 %
[2019-02-01 02:00] LABS: BUN/Creatinine Ratio 10 (6-26); Bilirubin,Total 1.2 mg/dL (0.3-1.0); Blood Urea Nitrogen 8 mg/dL (6-20); Calcium 8.7 mg/dL (8.6-10.3); Carbon Dioxide 28 mEq/L (23-29); Chloride 100 mEq/L (98-107); Glucose 111 mg/dL (70-105); Magnesium 1.8 mg/dL (1.6-2.6); Osmolality,Calculated 281 (280-300); Phosphorous 3.7 mg/dL (2.7-4.5); Potassium 2.9 mEq/L (3.5-5.1); Sodium 136 mEq/L (136-145); eGFR For Non-African Americans > 60 (> 60)
[2019-02-01] MEDS: *HR* Heparin 5,000 UNIT/ML VIAL SQ SCH (05:32)
[2019-02-01] MEDS: *HR* OxyCODONE/APAP 5/325 TABLET PO PRN (05:32)
[2019-02-01] MEDS: D5% in 0.45% NACL 1,000 ML IVC SCH (09:05)
[2019-02-01] MEDS: hydroCHLOROthiazide 25 MG TABLET PO SCH (09:05)
[2019-02-01] MEDS: Mesalamine 250 MG CAPSULE.ER PO SCH ×2 (10:22→13:12)
[2019-02-01 10:38] VITALS: BP 131/84
--- NOTE | 2019-02-01 12:57 | General Surgery Progress Note ---
Date of Encounter: 02/01/19 Time of Encounter: 12:48 Subjective Narrative: General Surgery - POD #4 progress note/discharge summary Patient feeling well, voicing no complaints. Still having some incisional pain which is controlled with oral medications Afebrile, currently 98.3, hemodynamically stable with pulse 68, respirations 15, blood pressure 131/84. Lungs: Clear Cardiac: Regular rate, no appreciable murmur Abdomen: Soft, minimal incisional tenderness. Incision is intact, clean and dry. No detected fascial defects. Active bowel sounds. Patient is tolerating full liquid diet and has had a bowel movement. Pathology: No significant abnormalities to the appendix (incidentally removed during the exploratory celiotomy) Labs: WBC 7.1, hemoglobin 12.8, hematocrit 39.9. Differential within normal limits Electrolytes notable for potassium of 2.9 otherwise normal lytes, BUN, cre atinine Total bilirubin has improved 1.2 Impression: Postoperative day #4, status post exploratory celiotomy release of small bowel obstruction related to the patient's previous lap band. The cath eter had looped creating an internal hernia through which the bowel had prolapsed. The small bowel was reduced relieving the small bowel obstruction. The lap band catheter was shortened to reduce recurrent looping. Incidental appendectomy had been completed at the time of the surgery. Hospital course: 58-year-old male readmitted to [facility] after returning to the hospital following discharge with recurrent abdominal distention, pain, nausea and vomiting with evidence of persistent/recurrent small bowel obstruction. The patient initially presented 01/22/19 with the same symptoms. The symptoms abated with NG decompression only to recur within 24 hours of discharge. The patient was readmitted for surgical intervention due to the failure of medical management. Per patient and family request I was contacted to see the patient in complete the surgery. Surgery was completed, 01/28/19. The patient had an unremarkable recovery with return of bowel function on postoperative day #3, diet was advanced as tolerated. The patient was discharged home in good physical condition, 02/01/19. Discharge diagnosis Small bowel obstruction secondary to internal hernia created by lap band loop Postoperative hypokalemia Hypertension; history of ulcerative colitis Discharge instructions Regular diet Activity as tolerated; lifting limited to less than 20 pounds Patient to resume home meds Patient may shower, wash his incision with soap and water Tylenol, ibuprofen, Motrin, Advil, Excedrin as needed for pain Prescription for Percocet 5/325, #12, one every 6-8 hours as needed for pain not relieved by [id number] medications Prescription for potassium 40 mEq 1 by mouth daily for 5 days Outpatient surgical follow-up, 02/06/19. Objective Vital Signs - Last 8 Hours Temp Pulse Resp BP Pulse Ox 02/01/19 10:32 98.3 F 68 15 131/84 93 02/01/19 06:30 98.3 F 65 16 115/76 93 Intake and Output 01/31/19 02/01/19 02/01/19 23:59 07:59 15:59 Intake Total 1190 / 1190 Output Total 200 / 1635 900 / 1375 475 / 1375 Balance -200 / -275 -900 / -185 715 / -185 Intake: IV Fluids 950 / 950 D5% And 0.45% Nacl 1000 Ml Bag 950 / 950 1,000 ML @ 50 mls/hr IVC .Q20H [facility] Rx#:[id number] Oral 240 / 240 Output: Urine 200 / 1635 900 / 1375 475 / 1375 Other: Meal Breakfast Percent of Meal Consumed 50% Stool Size Small Stool Color Brown # Bowel Movements 1 Weight 122 kg Patient Weight 02/01/19 23:59 Weight 122 kg - Labs 02/01/19 01:00 02/01/19 01:00 Diabetes panel 02/01/19 Range/Units 01:00 Sodium 136 (136-145) mEq/L Potassium 2.9 L (3.5-5.1) mEq/L Chloride 100 (98-107) mEq/L Carbon Dioxide 28 (23-29) mEq/L BUN 8 (6-20) mg/dL Creatinine 0.78 (0.70-1.30) mg/dL Glucose 111 H (70-105) mg/dL Calcium 8.7 (8.6-10.3) mg/dL Calcium panel 02/01/19 Range/Units 01:00 Calcium 8.7 (8.6-10.3) mg/dL Phosphorus 3.7 (2.7-4.5) mg/dL Pituitary panel 02/01/19 Range/Units 01:00 Sodium 136 (136-145) mEq/L Potassium 2.9 L (3.5-5.1) mEq/L Chloride 100 (98-107) mEq/L Carbon Dioxide 28 (23-29) mEq/L BUN 8 (6-20) mg/dL Creatinine 0.78 (0.70-1.30) mg/dL Glucose 111 H (70-105) mg/dL Calcium 8.7 (8.6-10.3) mg/dL Adrenal panel 02/01/19 Range/Units 01:00 Sodium 136 (136-145) mEq/L Potassium 2.9 L (3.5-5.1) mEq/L Chloride 100 (98-107) mEq/L Carbon Dioxide 28 (23-29) mEq/L BUN 8 (6-20) mg/dL Creatinine 0.78 (0.70-1.30) mg/dL Glucose 111 H (70-105) mg/dL Calcium 8.7 (8.6-10.3) mg/dL Total Bilirubin 1.2 H (0.3-1.0) mg/dL Consult Discharge Plan - Plan Referrals: Nii Mcclelland MD [Non-Partnered Physician] - Dodie Lazaro CNP [Primary Care Provider] -
--- NOTE | 2019-02-01 13:05 | Discharge Summary ---
Outpatient Proc Discharge Plan - Plan Additional Instructions: Regular diet Activity as tolerated; lifting limited less than 20 pounds Patient may shower, cleanse incision with soap and water Patient to resume/continue home meds Tylenol, ibuprofen, Motrin, Advil, Excedrin as needed for pain Prescription for Percocet 5/325, #12, one every 6-8 hours as needed for pain not relieved by [id number] medications Prescription for potassium chloride, 40 no evidence 1 by mouth daily for the next 5 days Outpatient surgical follow-up, 02/06/19. Prescriptions: OxyCODONE/APAP 5/325 [Percocet 5/325 MG] 1 each PO Q6-8H PRN 4 Days #12 tablet PRN Reason: pain not relieved by Tylenol Potassium Chloride 40 meq PO DAILY #5 tab.er.prt Home Medications: Cetirizine HCl [24Hour Allergy] 10 mg PO DAILY PRN 01/22/19 [History] Mesalamine [Pentasa] 1,000 mg PO QID 01/22/19 [History] hydroCHLOROthiazide [Hydrochlorothiazide] 25 mg PO DAILY 01/22/19 [History] Fluticasone Propionate Nasal [Flonase] 2 spray NS DAILY PRN 01/27/19 [History] Sodium Chloride for inhalation [Sodium Chloride, Saline 15 Ml 15 Ml] 2 - 3 ml IH DAILY PRN 01/27/19 [History] Acetaminophen [Tylenol] 650 mg PO Q6HR PRN tablet 02/01/19 [Rx] OxyCODONE/APAP 5/325 [Percocet 5/325 MG] 1 each PO Q6-8H PRN 4 Days #12 tablet 02/01/19 [Rx] Potassium Chloride 40 meq PO DAILY #5 tab.er.prt 02/01/19 [Rx]
== END 2019-02-01 14:15 | disposition home or self-care (01) | DRG 327 ==
LOC: EMEROOARM 21:51 → 3ANU 21:51
PROVIDERS: ADMIT Surgery; ATTEND Surgery